=== PATIENT | female | born 1985 | race Caucasian/White ===

== ENCOUNTER 2019-10-14 13:11 | Emergency (ER) | payer SELFPAY ==
[~2019-10-14] VITALS: Ht 165.1 cm; Wt 59.1 kg
[2019-10-14 13:23] VITALS: BP 103/53; Ht 165.1 cm; Wt 59.1 kg
[2019-10-14 14:28] LABS: ANION GAP 14.8 mmol/L (8-16); BASOPHILS 0.1 % (0-2); CALCIUM 8.6 mg/dL (8.5-10.1); CARBON DIOXIDE 24.7 mmol/L (21.0-32.0); CREATININE - SERUM 1.1 mg/dL (0.6-1.3); EOSINOPHILS 0.1 % (0-7); HEMATOCRIT 36.7 % (36.0-48.0); HEMOGLOBIN 12.2 g/dL (12-16); IMMATURE GRANULOCYTES 1.4 % (0-5); LYMPHOCYTES 4.7 % (15-50); MCH 28.9 pg (26.0-34.0); MCHC 33.2 g/dL (31.0-37.0); MONOCYTES 16.5 % (2-11); NEUTROPHILS 77.2 % (40-80); PLATELET COUNT 175 10x3/uL (130-400); POTASSIUM - SERUM 3.5 mmol/L (3.5-5.1); RBC 4.22 10x6/uL (4.00-5.40); RDW 13.8 % (11.5-14.5); WBC 14.6 10x3/uL (4.8-10.8)
[2019-10-14 14:31] LABS: HCG SERUM NEGATIVE (NEGATIVE)
[2019-10-14 14:34] LABS: ALBUMIN 2.8 g/dL (3.4-5.0); BILIRUBIN - TOTAL 0.72 mg/dL (0.2-1.3); PROTEIN - SERUM 6.4 g/dL (6.4-8.2)
[2019-10-14 15:01] LABS: BACTERIA MODERATE /hpf (NEGATIVE); BILIRUBIN NEGATIVE (NEGATIVE); GLUCOSE NEGATIVE (NEGATIVE); KETONE NEGATIVE (NEGATIVE); NITRITE NEGATIVE (NEGATIVE); RED CELLS - URINE 0-5 /hpf (0-5); WHITE CELLS - URINE 25-50 /hpf (NEGATIVE)
[2019-10-14] MEDS ORDERED: ZOFRAN ODT4 MG/UDTAB PO (16:36)
[2019-10-14] MEDS ORDERED: KEFLEX500 MG PO (16:36)
[2019-10-14] MEDS ORDERED: MACROBID100 MG PO (16:36)
== END 2019-10-14 16:11 | disposition home or self-care (01) ==
LOC: D.ER 13:11
PROVIDERS: Family Medicine
DX: R53.1 Weakness (principal); R10.9 Unspecified abdominal pain; N12 Tubulo-interstitial nephritis, not specified as acute or chronic; N39.0 Urinary tract infection, site not specified; Z53.29 Procedure and treatment not carried out because of patient's decision for other reasons

== ENCOUNTER 2019-10-18 00:06 | Inpatient (IN) | payer SELFPAY ==
[~2019-10-18] VITALS: Ht 165.1 cm; Wt 44.5 kg
[~2019-10-18 00:06] MED LIST: KEFLEX500 MG PO; MACROBID100 MG PO; ZOFRAN ODT4 MG/UDTAB PO
[2019-10-18 00:57] LABS: CALC OSMOLALITY 268 mosm/kg (275-300); CALCIUM 8.6 mg/dL (8.5-10.1); CARBON DIOXIDE 28.3 mmol/L (21.0-32.0); CHLORIDE - SERUM 100 mmol/L (98-107); CREATININE - SERUM 0.9 mg/dL (0.6-1.3); GLUCOSE 115 mg/dL (74-106); POTASSIUM - SERUM 3.2 mmol/L (3.5-5.1); SODIUM 135 mmol/L (136-145); UREA NITROGEN 7 mg/dL (7-18); eGFR NON AFRICAN AMERICAN 75 mL/min (90-120)
[2019-10-18 00:58] LABS: BASOPHILS 0.2 % (0-2); HEMATOCRIT 30.2 % (36.0-48.0); HEMOGLOBIN 10.1 g/dL (12-16); IMMATURE GRANULOCYTES 1.2 % (0-5); LYMPHOCYTES 18.9 % (15-50); MCH 28.5 pg (26.0-34.0); MCHC 33.4 g/dL (31.0-37.0); MCV 85.3 fL (80.0-100.0); MEAN PLATELET VOLUME 9.4 fL (7.4-10.4); MONOCYTES 11.3 % (2-11); NEUTROPHILS 67.4 % (40-80); RBC 3.54 10x6/uL (4.00-5.40); RDW 14.7 % (11.5-14.5); WBC 10.6 10x3/uL (4.8-10.8)
--- NOTE | 2019-10-18 00:58 | NUR ---
Dr Matias notified and reviewed pt behavior and assessment results. Pt is a low risk per Dr Matias. Dr Matias stated to give resources to pt at time of discharge. No further orders at this time. Resources reviewed with pt and she verbalizes understanding.
[2019-10-18 01:02] LABS: PLATELET COUNT 256 10x3/uL (130-400)
[2019-10-18 01:03] LABS: ALBUMIN 2.2 g/dL (3.4-5.0); ALKALINE PHOSPHATASE 126 U/L (30-120); ALT (SGPT) 23 U/L (10-68); BILIRUBIN - TOTAL 0.28 mg/dL (0.2-1.3); LIPASE 147 U/L (73-393); PROTEIN - SERUM 6.2 g/dL (6.4-8.2)
[2019-10-18 01:10] LABS: BILIRUBIN NEGATIVE (NEGATIVE); GLUCOSE NEGATIVE (NEGATIVE); KETONE NEGATIVE (NEGATIVE); NITRITE NEGATIVE (NEGATIVE); SPECIFIC GRAVITY 1.015 (1.005-1.020); UROBILINOGEN 12 mg/dL (NORMAL)
[2019-10-18 01:11] LABS: BACTERIA MODERATE /hpf (NEGATIVE); EPITHELIAL CELLS 0-5 /hpf (0-5); RED CELLS - URINE 0-5 /hpf (0-5)
--- NOTE | 2019-10-18 02:10 | NUR ---
SNACK BOX TO PATIENT. LEVAQUIN CON'T TO INFUSE.
[2019-10-18 02:52] VITALS: BP 94/50
--- NOTE | 2019-10-18 03:31 | NUR ---
[facility] 10MEQ/100ML STARTED 229 FINISHED 329. SECOND RIDER STARTED 329 AND CONTINUED INFUSING TO FLOOR AT 100ML/HR.
[2019-10-18 04:07] VITALS: BP 87/53; Ht 165.1 cm; Wt 44.5 kg
[2019-10-18 08:50] VITALS: BP 92/59
--- NOTE | 2019-10-18 10:17 | NUR ---
PATIENT WALKED OUT AMA BECAUSE HER GIRLFRIEND LEFT. STATED SHE WASNT STAYING HERE WITHOUT HER. NOTIFIED CLINICAL PROGRAM DIRECTOR AND ALYSE MCNEIL. IV REMOVED FROM LEFT AC WITH CATH TIP INTACT. PATIENT SIGNED AMA. TRIED TO EXPLAIN THAT SHE REALLY NEEDED TO STAY FOR THE IV ANTIBIOTICS. REFUSED. AMBULATED OUT OF HOSPITAL WITH PERSONAL BELONGINGS.
== END 2019-10-18 10:19 | disposition left against medical advice (07) | DRG 690 ==
LOC: D.ER 00:06 → D.MS 02:17
PROVIDERS: Emergency Medicine; ADMIT Emergency Medicine; ATTEND Emergency Medicine
DX: N10 Acute pyelonephritis (principal); E87.1 Hypo-osmolality and hyponatremia; D64.9 Anemia, unspecified; E87.6 Hypokalemia; F20.9 Schizophrenia, unspecified; F90.9 Attention-deficit hyperactivity disorder, unspecified type

== ENCOUNTER 2020-07-11 05:49 | Emergency (ER) | payer MEDICAID ==
[~2020-07-11] VITALS: Ht 165.1 cm; Wt 45.4 kg
[2020-07-11 05:52] VITALS: BP 109/79; Ht 165.1 cm; Wt 45.4 kg
[2020-07-11 06:19] LABS: UDS - AMPHET POSITIVE QUAL (NEGATIVE); UDS - BARB NEGATIVE QUAL (NEGATIVE); UDS - BENZO NEGATIVE QUAL (NEGATIVE); UDS - COCAINE NEGATIVE QUAL (NEGATIVE); UDS - OPIATE NEGATIVE QUAL (NEGATIVE); UDS - PCP NEGATIVE QUAL (NEGATIVE); UDS - THC POSITIVE QUAL (NEGATIVE)
[2020-07-11 07:00] LABS: CALC OSMOLALITY 270 mosm/kg (275-300); CALCIUM 8.4 mg/dL (8.5-10.1); CARBON DIOXIDE 24.3 mmol/L (21.0-32.0); CHLORIDE - SERUM 102 mmol/L (98-107); CREATININE - SERUM 0.5 mg/dL (0.6-1.3); GLUCOSE 99 mg/dL (74-106); POTASSIUM - SERUM 3.8 mmol/L (3.5-5.1); SODIUM 135 mmol/L (136-145); UREA NITROGEN 14 mg/dL (7-18); eGFR NON AFRICAN AMERICAN > 90 mL/min (90-120)
[2020-07-11 07:04] LABS: BASOPHILS 0.2 % (0-2); EOSINOPHILS 0.7 % (0-7); HEMATOCRIT 32.5 % (36.0-48.0); HEMOGLOBIN 10.5 g/dL (12-16); IMMATURE GRANULOCYTES 0.4 % (0-5); LYMPHOCYTE ABS# 2.49 10x3/uL (1.18-3.74); LYMPHOCYTES 22.9 % (15-50); MCH 28.4 pg (26.0-34.0); MCHC 32.3 g/dL (31.0-37.0); MCV 87.8 fL (80.0-100.0); MEAN PLATELET VOLUME 10.4 fL (7.4-10.4); NEUTROPHIL ABS# 7.38 10x3/uL (1.56-6.13); NEUTROPHILS 67.8 % (40-80); PLATELET COUNT 303 10x3/uL (130-400); RDW 14.4 % (11.5-14.5); WBC 10.9 10x3/uL (4.8-10.8)
[2020-07-11 07:07] LABS: HCG URINE POSITIVE (NEGATIVE)
[2020-07-11 07:23] LABS: BACTERIA FEW HPF (NONE SEEN); BILIRUBIN NEGATIVE (NEGATIVE); KETONE NEGATIVE (NEGATIVE); NITRITE NEGATIVE (NEGATIVE); SQUAMOUS EPITHELIAL OCC HPF (0-4); UROBILINOGEN NORMAL mg/dL (< 2); WHITE CELLS - URINE OCC HPF (0-4)
[2020-07-11 07:28] LABS: ALBUMIN 2.7 g/dL (3.4-5.0); ALKALINE PHOSPHATASE 45 U/L (30-120); ALT (SGPT) 20 U/L (10-68); BILIRUBIN - TOTAL 0.15 mg/dL (0.2-1.3); LIPASE 207 U/L (73-393); MAGNESIUM - SERUM 1.7 mg/dL (1.8-2.4); PROTEIN - SERUM 5.9 g/dL (6.4-8.2)
[2020-07-11 08:06] LABS: HCG - QUANTITATIVE (MATERNAL) 204789 mIU/mL
[2020-07-11] MEDS ORDERED: CEPHALEXIN500 M1 PO (09:53)
[2020-07-11] MEDS ORDERED: MACROBID100 MG PO (09:53)
== END 2020-07-11 10:51 | disposition home or self-care (01) ==
LOC: D.ER 05:49
PROVIDERS: Family Medicine
DX: O23.41 Unspecified infection of urinary tract in pregnancy, first trimester (principal); O43.891 Other placental disorders, first trimester; O20.0 Threatened abortion; Z3A.09 9 weeks gestation of pregnancy; F15.10 Other stimulant abuse, uncomplicated

== ENCOUNTER 2020-07-29 00:21 | Emergency (ER) | payer SELFPAY ==
[~2020-07-29] VITALS: Ht 165.1 cm; Wt 50.0 kg
[~2020-07-29 00:21] MED LIST changes: +CEPHALEXIN500 M1 PO
[2020-07-29 00:27] VITALS: BP 98/57; Ht 165.1 cm; Wt 50.0 kg
--- NOTE | 2020-07-29 00:58 | NUR ---
PATIENT IN ER FOR STOMACH CRAMPS, SHE IS NOT SUICIDIAL, SHE HAS BEEN IN THE PAST, SHE IS TEARFUL BUT SHE SAYS THAT SHE IS TEARFUL BECAUSE SHE IS IN PAIN AND SHE IS ALSO . (APPROXIMATELY THREE MONTHS). 1-800 NUMBER GIVEN TO HER FOR FUTURE REFERENCE.
[2020-07-29 02:01] LABS: BASOPHILS 0.1 % (0-2); EOSINOPHILS 1.1 % (0-7); HEMATOCRIT 36.3 % (36.0-48.0); IMMATURE GRANULOCYTES 0.4 % (0-5); LYMPHOCYTE ABS# 1.88 10x3/uL (1.18-3.74); LYMPHOCYTES 22.5 % (15-50); MCH 28.8 pg (26.0-34.0); MCHC 33.1 g/dL (31.0-37.0); MCV 87.3 fL (80.0-100.0); MEAN PLATELET VOLUME 10.3 fL (7.4-10.4); MONOCYTES 5.4 % (2-11); NEUTROPHIL ABS# 5.91 10x3/uL (1.56-6.13); NEUTROPHILS 70.5 % (40-80); PLATELET COUNT 217 10x3/uL (130-400); RBC 4.16 10x6/uL (4.00-5.40); RDW 14.7 % (11.5-14.5); WBC 8.4 10x3/uL (4.8-10.8)
[2020-07-29 02:02] LABS: BILIRUBIN NEGATIVE (NEGATIVE); CALC OSMOLALITY 270 mosm/kg (275-300); CALCIUM 8.7 mg/dL (8.5-10.1); CARBON DIOXIDE 27.5 mmol/L (21.0-32.0); CHLORIDE - SERUM 102 mmol/L (98-107); CREATININE - SERUM 0.7 mg/dL (0.6-1.3); GLUCOSE 137 mg/dL (74-106); KETONE SMALL mg/dL (NEGATIVE); NITRITE NEGATIVE (NEGATIVE); POTASSIUM - SERUM 3.7 mmol/L (3.5-5.1); SODIUM 135 mmol/L (136-145); UREA NITROGEN 9 mg/dL (7-18); UROBILINOGEN NORMAL mg/dL (< 2); eGFR NON AFRICAN AMERICAN > 90 mL/min (90-120)
[2020-07-29 02:30] LABS: ALBUMIN 2.8 g/dL (3.4-5.0); ALKALINE PHOSPHATASE 52 U/L (30-120); ALT (SGPT) 17 U/L (10-68); BILIRUBIN - TOTAL 0.28 mg/dL (0.2-1.3); CREATINE KINASE 27 UL (21-215); HCG - QUANTITATIVE (MATERNAL) 149461 mIU/mL; PROTEIN - SERUM 6.7 g/dL (6.4-8.2)
[2020-07-29 02:31] LABS: UDS - AMPHET POSITIVE QUAL (NEGATIVE); UDS - BARB NEGATIVE QUAL (NEGATIVE); UDS - BENZO NEGATIVE QUAL (NEGATIVE); UDS - COCAINE NEGATIVE QUAL (NEGATIVE); UDS - OPIATE NEGATIVE QUAL (NEGATIVE); UDS - PCP NEGATIVE QUAL (NEGATIVE); UDS - THC POSITIVE QUAL (NEGATIVE)
== END 2020-07-29 04:50 | disposition home or self-care (01) ==
LOC: D.ER 00:21
PROVIDERS: Family Medicine
DX: O26.891 Other specified pregnancy related conditions, first trimester (principal); R10.9 Unspecified abdominal pain; F15.10 Other stimulant abuse, uncomplicated; D18.1 Lymphangioma, any site; Z3A.10 10 weeks gestation of pregnancy